=== PATIENT | female | born 1985 | race Caucasian/White ===

== ENCOUNTER → 2016-07-13 | Outpatient (CLI) | payer OTHER ==
[2016-07-13 11:10] LABS: ALT 259 U/L (9-52); AST 113 U/L (14-36); Alkaline Phosphatase 66 U/L (38-126); Anion Gap 12 mmol/L; Blood Urea Nitrogen 16 mg/dL (7-17); Calcium 10.2 mg/dL (8.4-10.2); Carbon Dioxide 22 mmol/L (22-30); Chloride 109 mmol/L (98-107); Glucose 86 mg/dL (74-99); Non-African American GFR(MDRD) >60 (>60 ml/min/1.73 sqM); Sodium 143 mmol/L (137-145); Total Bilirubin 0.7 mg/dL (0.2-1.3); Total Protein 8.2 g/dL (6.3-8.2)
[2016-07-13 11:54] LABS: Basophils # (A) 0.1 k/uL (0-0.2); Basophils % (A) 1 %; CH 30.6; Eosinophils # (A) 0.2 k/uL (0-0.7); Eosinophils % (A) 2 %; HCT 48.2 % (34.0-46.0); HDW 2.22; HGB 15.7 gm/dL (11.4-16.0); Luc % (Auto) 2; Lymphocytes # (A) 2.5 k/uL (1.0-4.8); Lymphocytes % (A) 26 %; MCH 31.3 pg (25.0-35.0); MCHC 32.6 g/dL (31.0-37.0); Monocytes # (A) 0.5 k/uL (0-1.0); Monocytes % (A) 5 %; Neutrophils # (A) 6.3 k/uL (1.3-7.7); Neutrophils % (A) 65 %; RBC 5.02 m/uL (3.80-5.40); RDW 14.1 % (11.5-15.5); WBC 9.8 k/uL (3.8-10.6); WBC (Perox) 10.37
== END | disposition home or self-care (01) ==
LOC: LABWHC1 09:24
PROVIDERS: ATTEND Family Medicine
DX: D64.9 Anemia, unspecified (principal); E87.8 Other disorders of electrolyte and fluid balance, not elsewhere classified
CPT/HCPCS: 36415; 80053; 85025

== ENCOUNTER 2016-11-10 01:44 | Emergency (ER) | payer OTHER ==
[2016-11-10 01:50] VITALS: BP 113/67; PULSE 74; RESP 16; TEMP 97.9
[2016-11-10] MEDS ORDERED: PROPARACAINE 0.5% OPHTH DROPS 15 ML BTL LEFT EYE STA (03:06)
--- NOTE | 2016-11-10 03:27 | ED ---
General Adult HPI - General Chief complaint: Skin/Abscess/Foreign Body Stated complaint: Eye irratation/rash Time Seen by Provider: 11/10/16 03:00 Source: patient, RN notes reviewed Mode of arrival: ambulatory Limitations: no limitations - History of Present Illness Initial comments: Patient is a 31-year-old female presents to the emergency room for evaluation. Patient states that about a week ago she woke up with her left eye red and draining. Patient states [facility] and she was placed on an eyedrop and an oral antibiotic, Keflex. Patient states she finished taking the Keflex and eyedrops about 2 days ago. Patient states her eye is improved but is still tiny bit swollen and red. Patient states she went [facility] today and was placed on an antibiotic eyedrop again. Patient does state that she gets these infected cysts under the skin of her face. Patient does state that she is prone to MRSA. Patient states she's having pain on the left side of her face with swelling. Patient does admit to picking at the lesion. Patient has no fevers or chills. Patient denies shortness of breath. Patient denies headache or dizziness. - Related Data Previous Rx's Medication Instructions Recorded Sulfamethox-Tmp 800-160Mg [Bactrim 2 each PO Q12HR #56 tab 11/10/16 Ds] Allergies Allergy/AdvReac Type Severity Reaction Status Date / Time codeine Allergy Rash/Hives Verified 11/10/16 01:50 Review of Systems ROS Statement: Those systems with pertinent positive or pertinent negative responses have been documented in the HPI. ROS Other: All systems not noted in ROS Statement are negative. Past Medical History Past Medical History: No Reported History History of Any Multi-Drug Resistant Organisms: None Reported Past Surgical History: No Surgical Hx Reported, Tonsillectomy Past Psychological History: No Psychological Hx Reported Smoking Status: Current every day smoker Past Alcohol Use History: Occasional Past Drug Use History: None Reported General Exam - General Exam Comments Initial Comments: sitting in exam room, no acute distress. Limitations: no limitations General appearance: alert, in no apparent distress Head exam: Present: atraumatic, normocephalic, normal inspection Expanded Eyelids: Normal Inspection: Bilateral Pupils: Regular, Round: Bilateral, Reactive: Bilateral Sclera/Conjunctival: Injection: Left, Exudate: Left Anterior chamber: Normal Inspection: Bilateral ENT exam: Present: normal exam Neck exam: Present: normal inspection Respiratory exam: Present: normal lung sounds bilaterally. Absent: respiratory distress Cardiovascular Exam: Present: regular rate, normal rhythm, normal heart sounds Extremities exam: Present: normal inspection Back exam: Present: normal inspection Neurological exam: Present: alert, oriented X3, CN II-XII intact Psychiatric exam: Present: normal affect, normal mood, anxious Skin exam: Present: warm, dry, other (cystic acne lesion on left cheek of the face with surrounding erythema.) Course Vital Signs 11/10/16 01:46 Temperature 97.9 F Pulse Rate 74 Respiratory 16 Rate Blood Pressure 113/67 O2 Sat by Pulse 99 Oximetry Medical Decision Making - Medical Decision Making Patient is a 31-year-old female since emergency room for evaluation of left eye redness and left facial lesion/swelling. left eye anesthetized with proparacaine and evaluated under wood's lamp with fluorescein dye. No uptake noted. Patient will be placed on Bactrim. Advised patient to continue taking eyedrops as directed. patient will be given ophthalmology follow-up with. Patient states she understands everything that was discussed with her. Return parameters discussed. Disposition Clinical Impression: Conjunctivitis, left eye, Cystic acne Disposition: HOME SELF-CARE Condition: Good Instructions: Acne (ED), Conjunctivitis (ED) Additional Instructions: Continue using eyedrops as directed. Take antibiotics as directed. Wash face with antibacterial soap and water daily. Apply warm compresses to face. Please follow up with environmental maintenance worker. Please follow up with primary care provider in 1-2 days. If any new symptom arises or symptoms worsen, return to ER as soon as possible. Prescriptions: Sulfamethox-Tmp 800-160Mg [Bactrim Ds] 2 each PO Q12HR #56 tab Referrals: Stephie Hammer MD [STAFF PHYSICIAN] - 1-2 days Time of Disposition: 03:33
== END 2016-11-10 04:09 | disposition home or self-care (01) ==
LOC: EC 01:44
DX: H10.9 Unspecified conjunctivitis (principal); L70.0 Acne vulgaris; R51 Headache; F17.200 Nicotine dependence, unspecified, uncomplicated; Z88.5 Allergy status to narcotic agent
CPT/HCPCS: 99283

== ENCOUNTER 2016-11-12 22:29 | Inpatient (IN) | payer OTHER ==
[2016-11-12] MEDS ORDERED: MOXIFLOXACIN HCL 0.5% DROPS 3 ML BTL LEFT EYE ONE (23:04)
[2016-11-13] LABS: CH 32.1; CHCM 34.5; HCT 36.7 % (34.0-46.0); HDW 2.59; HGB 12.4 gm/dL (11.4-16.0); MCH 31.6 pg (25.0-35.0); MCHC 33.8 g/dL (31.0-37.0); MCV 93.5 fL (80.0-100.0); Mean Platelet Volume 6.6; RBC 3.92 m/uL (3.80-5.40); RDW 13.4 % (11.5-15.5); WBC 5.2 k/uL (3.8-10.6); WBC (Perox) 5.15
[2016-11-13 00:12] LABS: Anion Gap 11 mmol/L; Blood Urea Nitrogen 17 mg/dL (7-17); Calcium 9.7 mg/dL (8.4-10.2); Carbon Dioxide 20 mmol/L (22-30); Chloride 108 mmol/L (98-107); Glucose 65 mg/dL (74-99); Non-African American GFR(MDRD) 58 (>60 ml/min/1.73 sqM); Potassium 4.1 mmol/L (3.5-5.1); Sodium 139 mmol/L (137-145)
[2016-11-13] MEDS ORDERED: IV VANCOMYCIN PER PHARMACY 1 EACH MISC MISCELLANE PRN (00:27)
[2016-11-13 00:28] LABS: Add Differential Manual Differential
[2016-11-13 00:30] LABS: Manual Review Performed; Nucleated Red Blood Cells 0 /100 WBC (0-0); Total Cells Counted 100
[2016-11-13] MEDS ORDERED: ACETAMINOPHEN TAB 325 MG TAB PO PRN (00:30)
[2016-11-13] MEDS ORDERED: IBUPROFEN 400 MG TAB PO PRN (00:30)
[2016-11-13] MEDS ORDERED: ONDANSETRON 4 MG/2 ML VIAL IVP PRN (00:30)
[2016-11-13] MEDS ORDERED: NALOXONE 0.4 MG/ML 1 ML VIAL IV PRN (00:30)
[2016-11-13] MEDS ORDERED: HYDROcodone/APAP 5-325MG 1 EACH TAB PO PRN (00:30)
--- NOTE | 2016-11-13 00:30 | ED ---
Skin/Abscess/FB HPI - General Chief complaint: Skin/Abscess/Foreign Body Stated complaint: Infection/face/eye Time Seen by Provider: 11/12/16 22:51 Source: patient, RN notes reviewed Mode of arrival: ambulatory Limitations: no limitations - History of Present Illness Initial comments: 31-year-old female presents emergency Department for left facial abscess, left eye conjunctivitis. Patient has been seen at [email or web address] twice in emergency department for this. Patient states that her eye is improving though still injected. Patient states that she has this large sore on her face and she has had MRSA and several times in the past. Patient states that [facility] cultured her eye and he did come back positive for MRSA. Patient's denies any fevers or chills but states that she has pain in her left cheek and she feels swelling on the inside of her cheek also. Patient denies any headache, dizziness, neck pain. Patient has been taken Bactrim is on her third day of medication and states symptoms are getting worse. - Related Data Previous Rx's Medication Instructions Recorded Sulfamethox-Tmp 800-160Mg [Bactrim 2 each PO Q12HR #56 tab 11/10/16 Ds] Allergies Allergy/AdvReac Type Severity Reaction Status Date / Time codeine Allergy Rash/Hives Verified 11/12/16 22:41 Review of Systems ROS Statement: Those systems with pertinent positive or pertinent negative responses have been documented in the HPI. ROS Other: All systems not noted in ROS Statement are negative. Past Medical History Past Medical History: No Reported History History of Any Multi-Drug Resistant Organisms: None Reported Past Surgical History: No Surgical Hx Reported, Tonsillectomy Past Psychological History: No Psychological Hx Reported Smoking Status: Current every day smoker Past Alcohol Use History: Occasional Past Drug Use History: None Reported General Exam Limitations: no limitations General appearance: alert, in no apparent distress Head exam: Present: atraumatic, normocephalic, normal inspection Eye exam: Present: PERRL, EOMI, conjunctival injection (Left). Absent: normal appearance, scleral icterus, periorbital swelling ENT exam: Present: normal oropharynx, mucous membranes moist, TM's normal bilaterally, normal external ear exam, other (Left cheek there is 2 cm sore surrounding edema and mild erythema is tender with palpation). Absent: normal exam Neck exam: Present: normal inspection, full ROM. Absent: tenderness, meningismus, lymphadenopathy Respiratory exam: Present: normal lung sounds bilaterally. Absent: respiratory distress, wheezes, rales, rhonchi, stridor Cardiovascular Exam: Present: regular rate, normal rhythm, normal heart sounds. Absent: systolic murmur, diastolic murmur, rubs, gallop, clicks Course Vital Signs 11/12/16 22:37 Temperature 98.4 F Pulse Rate 83 Respiratory 16 Rate Blood Pressure 99/55 O2 Sat by Pulse 98 Oximetry Medical Decision Making - Medical Decision Making 31-year-old female presents emergency Department for left eye redness and cheek abscess. Patient be placed on vancomycin admitted and given Vigamox eyedrops for left eye. Patient has failed outpatient treatment. - Lab Data Result diagrams: 11/12/16 23:47 11/12/16 23:47 Lab Results 11/12/16 11/12/16 Range/Units 23:47 23:47 WBC 5.2 (3.8-10.6) k/uL RBC 3.92 (3.80-5.40) m/uL Hgb 12.4 (11.4-16.0) gm/dL Hct 36.7 (34.0-46.0) % MCV 93.5 (80.0-100.0) fL MCH 31.6 (25.0-35.0) pg MCHC 33.8 (31.0-37.0) g/dL RDW 13.4 (11.5-15.5) % Plt Count 219 (150-450) k/uL Sodium 139 (137-145) mmol/L Potassium 4.1 (3.5-5.1) mmol/L Chloride 108 H (98-107) mmol/L Carbon Dioxide 20 L (22-30) mmol/L Anion Gap 11 mmol/L BUN 17 (7-17) mg/dL Creatinine 1.10 H (0.52-1.04) mg/dL Est GFR (MDRD) Af Amer >60 (>60 ml/min/1.73 sqM) Est GFR (MDRD) Non-Af 58 (>60 ml/min/1.73 sqM) Glucose 65 L (74-99) mg/dL Calcium 9.7 (8.4-10.2) mg/dL Disposition Clinical Impression: Conjunctivitis, left eye, Cellulitis, face, Failure of outpatient treatment Disposition: ADMITTED IP TO THIS HOSP Condition: Fair Referrals: None,Stated [Primary Care Provider] - 1-2 days
[2016-11-13] MEDS ORDERED: HYDROcodone/APAP 5-325MG 1 EACH TAB PO STA (00:31)
[2016-11-13] MEDS ORDERED: diphenhydrAMINE 50 MG/ML 1 ML VIAL IVP STA (00:31)
[2016-11-13] MEDS ORDERED: VANCOMYCIN 1,000 MG in SODIUM CHLORIDE 0.9% 250 ML IVPB STA (00:57)
[2016-11-13 01:23] VITALS: BMI 21.7
[2016-11-13] MEDS: VANCOMYCIN 1,000 MG in SODIUM CHLORIDE 0.9% 250 ML IVPB SCH ×2 (08:54→21:08)
[2016-11-13] MEDS ORDERED: diphenhydrAMINE 50 MG/ML 1 ML VIAL IVP PRN (15:57)
[2016-11-13] MEDS ORDERED: lamoTRIgine 100 MG TAB PO SCH (16:00)
[2016-11-13] MEDS: MOXIFLOXACIN HCL 0.5% DROPS 3 ML BTL LEFT EYE SCH ×2 (16:32→20:44)
[2016-11-13 16:48] VITALS: RESP 20
--- NOTE | 2016-11-13 18:58 | HP ---
DATE OF ADMISSION: 11/13/2016 CHIEF COMPLAINT: Swelling of the left eye and left cheek for the past 2 weeks. HISTORY OF PRESENT ILLNESS: Mrs. Blancas is a 31-year-old female with a past medical history Of ADHD, and hypertension coming into the hospital with a chief complaint of left eye conjunctivitis and left cheek swelling that has been going on for the past two weeks. The patient stated that two weeks back, she noticed redness and swelling of her left eye that initially has spread to the left side of the face and she also had a large sore on the left side of her face. The patient mentions having history of MRSA several times in the past. Patient states that she went to [facility] where they cultured the eye and was told that it came back positive for MRSA and so she came into to [facility] for further elevation. Patient denies having any fevers, chills, or rigors. Denies having any headaches, blurring of vision and has no complaints of neck pain, dizziness, loss of consciousness. Patient did take Bactrim for a couple of days and also Keflex for a few days. In spite of taking that these antibiotics, her symptoms did worsen. The patient has been started on IV vancomycin and was admitted to the hospital. REVIEW OF SYSTEMS: CONSTITUTIONAL: No fevers, chills, or rigors. RESPIRATORY: No cough. No difficulty breathing. CARDIOVASCULAR: No chest pain, no palpitations. GASTROINTESTINAL: No abdominal pain, nausea, vomiting, or diarrhea. : No dysuria or hematuria. HEMATOLOGICAL: No history of easy bruising or recurrent infections. Rheumatological: None. MUSCULOSKELETAL: None. ENDOCRINE: None. All 13 review of systems are done and negative except for the ones mentioned in the HPI. Past medical history significant for MRSA infection, ADHD and depression. Current home medications: 1. Adderall. 2. Lamictal. 3. Bactrim that she has been taking for the past 3 days. ALLERGIES: CODEINE. PAST SURGICAL HISTORY: None. FAMILY HISTORY: Denies having any history of hypertension or diabetes. SOCIAL HISTORY: Every day smoker, smokes 8 to 10 cigarettes per day and occasional alcohol intake. No history of intravenous drug abuse. On examination: PATIENT'S VITAL SIGNS: Temperature 98, heart rate 84, respiratory 16, blood pressure 87/53, saturating 99% on room air. GENERAL EXAMINATION: Patient appears to be no acute distress. Examination of head: Patient has sore with a scab formation on the left side of cheek with surrounding erythema, tenderness and warmth. Examination of the eyes: There is conjunctival injection of the left eye. No periorbital swelling. ENT: Oropharynx is normal. Mucous membranes normal. NECK: No JVD. No thyromegaly. No lymphadenopathy. CARDIOVASCULAR: S1, S2 heard. Bilateral breath sounds are positive. No wheeze or crackles. ABDOMEN: Soft, nontender, no organomegaly. Bowel sounds positive. EXTREMITIES: No edema. No cyanosis, no clubbing. Peripheral pulses are felt. LEGAL RECRUITER: Alert and awake, oriented x3. No focal deficits. Psychiatry: Appropriate mood and affect. Musculoskeletal: No joint swelling or deformity. SKIN: No rashes except the one on the face. Patient has big tattoo on the left side of the arm. Patient's labs: White count of 5.2, hemoglobin is 12.4, platelets of 219. Sodium 139, potassium 4.1, chloride 108, bicarb 20, BUN 17, creatinine 1.10. Calcium of 9.7. ASSESSMENT AND PLAN: 1. Left eye conjunctivitis. 2. Left side cellulitis of the left side of the face. Failed outpatient treatment. PLAN: The patient has been told that her cultures have been positive for MRSA so she has been started on IV vancomycin and she was also given moxifloxacin eye drops in the ED. We will continue with them. Patient also resumed on her home medications and further recommendations depending on the progress of the patient.
[2016-11-13 20:11] VITALS: PULSE 72; TEMP 98.7
[2016-11-13 20:33] VITALS: BP 108/64
[2016-11-14 06:58] LABS: Basophils % (A) 1 %; CH 31.8; CHCM 35.2; Eosinophils # (A) 0.2 k/uL (0-0.7); Eosinophils % (A) 4 %; HCT 36.4 % (34.0-46.0); HDW 2.82; HGB 12.8 gm/dL (11.4-16.0); Luc % (Auto) 2; Lymphocytes # (A) 2.3 k/uL (1.0-4.8); Lymphocytes % (A) 53 %; MCH 31.9 pg (25.0-35.0); MCHC 35.2 g/dL (31.0-37.0); MCV 90.7 fL (80.0-100.0); Mean Platelet Volume 6.9; Monocytes # (A) 0.2 k/uL (0-1.0); Monocytes % (A) 5 %; Neutrophils # (A) 1.5 k/uL (1.3-7.7); Neutrophils % (A) 35 %; RBC 4.02 m/uL (3.80-5.40); RDW 13.2 % (11.5-15.5); WBC 4.4 k/uL (3.8-10.6); WBC (Perox) 4.49
[2016-11-14 07:26] LABS: Anion Gap 8 mmol/L; Blood Urea Nitrogen 15 mg/dL (7-17); Calcium 8.8 mg/dL (8.4-10.2); Carbon Dioxide 19 mmol/L (22-30); Chloride 114 mmol/L (98-107); Glucose 87 mg/dL (74-99); Non-African American GFR(MDRD) >60 (>60 ml/min/1.73 sqM); Potassium 5.1 mmol/L (3.5-5.1); Sodium 141 mmol/L (137-145)
[2016-11-14 08:44] LABS: Manual Review Performed; RBC Morphology Normal
== END 2016-11-14 06:55 | disposition left against medical advice (07) | DRG 603 ==
LOC: EC 22:29 → 6PED 11-13 00:30
PROVIDERS: ADMIT Hospitalist; ATTEND Hospitalist
DX: L03.211 Cellulitis of face (principal); I10 Essential (primary) hypertension; L02.01 Cutaneous abscess of face; F17.210 Nicotine dependence, cigarettes, uncomplicated; F90.9 Attention-deficit hyperactivity disorder, unspecified type; H10.9 Unspecified conjunctivitis; Z86.14 Personal history of Methicillin resistant Staphylococcus aureus infection; Z88.5 Allergy status to narcotic agent
CPT/HCPCS: 36415; 80048; 85025; 87040; 96374; 99285

== ENCOUNTER 2017-01-20 19:44 | Emergency (ER) | payer OTHER ==
[2017-01-20 19:56] VITALS: BP 93/54; PULSE 84; RESP 20; TEMP 99.3
[2017-01-20] MEDS ORDERED: PROPARACAINE 0.5% OPHTH DROPS 15 ML BTL RIGHT EYE STA (20:16)
--- NOTE | 2017-01-20 20:24 | ED ---
General Adult HPI - General Chief complaint: ENT Stated complaint: eye infection Time Seen by Provider: 01/20/17 19:58 Source: patient, RN notes reviewed Mode of arrival: ambulatory Limitations: no limitations - History of Present Illness Initial comments: Patient is a 31-year-old female who presents emergency room today with chief complaint of increased redness irritation to the right eye. She does admit that she's had some watery drainage and discharge. She does admit that 2 months ago she was diagnosed with "MRSA" to the right eye. She states that she was admitted and placed on IV antibiotics. Patient states that she did leave AMA. She states that she continue with antibiotic drops at home and symptoms improved. She states that the symptoms will return once again over the last 2 days. She denies any other complaints or associated symptoms at this time. Patient denies any recent fever, chills, shortness of breath, chest pain, back pain, abdominal pain, nausea or vomiting, numbness or tingling, dysuria or hematuria, constipation or diarrhea, headaches, or any other complaints. - Related Data Home Medications Medication Instructions Recorded Confirmed Buprenorphine HCl/Naloxone HCl 1.5 film SUBLINGUAL Q12H 11/13/16 11/13/16 [Suboxone 8 mg-2 mg Sl Film] Dextroamphetamine/Amphetamine 20 mg PO TID 11/13/16 11/13/16 [Adderall] Sulfamethox-Tmp 800-160Mg [Bactrim 2 tab PO Q12HR 11/13/16 11/13/16 Ds] Tobramycin 0.3% Ophth Soln [Tobrex 1 drop BOTH EYES Q2H 11/13/16 11/13/16 0.3% Ophth Soln] lamoTRIgine [LaMICtal] 100 mg PO DAILY 11/13/16 11/13/16 Previous Rx's Medication Instructions Recorded Moxifloxacin [Vigamox 0.3%] 1 drop RIGHT EYE TID 10 Days 01/20/17 Allergies Allergy/AdvReac Type Severity Reaction Status Date / Time codeine Allergy Rash/Hives Verified 01/20/17 19:56 Review of Systems ROS Statement: Those systems with pertinent positive or pertinent negative responses have been documented in the HPI. ROS Other: All systems not noted in ROS Statement are negative. Past Medical History Past Medical History: No Reported History History of Any Multi-Drug Resistant Organisms: MRSA Date of last positivie culture/infection: 11/2016 MDRO Source:: left eye Past Surgical History: No Surgical Hx Reported, Tonsillectomy Past Anesthesia/Blood Transfusion Reactions: No Reported Reaction Past Psychological History: No Psychological Hx Reported Smoking Status: Current every day smoker Past Alcohol Use History: Occasional Past Drug Use History: None Reported - Past Family History Mother Family Medical History: No Reported History General Exam - General Exam Comments Initial Comments: General: The patient is awake and alert, in no distress, and does not appear acutely ill. Eye: Pupils are equal, round and reactive to light, extra-ocular movements are intact. No nystagmus. Increased redness to the right conjunctiva. Ears, nose, mouth and throat: There are moist mucous membranes and no oral lesions. Neck: The neck is supple, there is no tenderness or JVD. Cardiovascular: There is a regular rate and rhythm. No murmur, rub or gallop is appreciated. Respiratory: Lungs are clear to auscultation, respirations are non-labored, breath sounds are equal. No wheezes, stridor, rales, or rhonchi. Gastrointestinal: Soft, non-distended, non-tender abdomen without masses or organomegaly noted. There is no rebound or guarding present. No CVA tenderness. Bowel sounds are unremarkable. Musculoskeletal: Normal ROM, no tenderness. Strength 5/5. Sensation intact. Pulses equal bilaterally 2+. Neurological: A&O x 3. CN II-XII intact, There are no obvious motor or sensory deficits. Coordination appears grossly intact. Speech is normal. Skin: Skin is warm and dry and no rashes or lesions are noted. Psychiatric: Cooperative, appropriate mood & affect, normal judgment. Limitations: no limitations Course Vital Signs 01/20/17 19:54 Temperature 99.3 F Pulse Rate 84 Respiratory 20 Rate Blood Pressure 93/54 O2 Sat by Pulse 99 Oximetry Medical Decision Making - Medical Decision Making Case discussed in detail with attending physician Dr. Kessler. Patient reexamined at this time shows no signs of distress resting comfortably. Patient' s recent visit an admission on 11/13/2016 was reviewed. She did receive a dose of IV vancomycin. At the time patient did have an abscess to the right side of her cheek as well. At this time there is no sign of abscess. She does have evidence for conjunctivitis to the right eye. Patient did only stay in the hospital for 1 day in the left AMA. She continued on antibiotic drops of Vigamox at the time. Patient will be started on these drops today." With the family doctor and binder cutter hand. Advised return if any symptoms increase worsen or for any other concerns. Disposition Clinical Impression: Acute conjunctivitis of right eye Disposition: HOME SELF-CARE Condition: Good Instructions: Conjunctivitis (ED) Additional Instructions: Please follow-up family doctor and binder cutter hand over the next 2 days. Please continue antibiotic drops as discussed. Please return to emergency room for any other concerns. Prescriptions: Moxifloxacin [Vigamox 0.3%] 1 drop RIGHT EYE TID 10 Days Referrals: Abdullahi eLiva MD [Primary Care Provider] - 1-2 days Allan Mulligan MD [STAFF PHYSICIAN] - 1-2 days Time of Disposition: 20:22
== END 2017-01-20 20:30 | disposition home or self-care (01) ==
LOC: EC 19:44
DX: H10.31 Unspecified acute conjunctivitis, right eye (principal); L02.01 Cutaneous abscess of face; F17.200 Nicotine dependence, unspecified, uncomplicated; Z79.899 Other long term (current) drug therapy; Z88.5 Allergy status to narcotic agent
CPT/HCPCS: 99283

== ENCOUNTER 2017-02-09 19:19 | Emergency (ER) | payer OTHER ==
[2017-02-09 19:33] VITALS: BP 116/69; PULSE 103; RESP 18; TEMP 98.7
--- NOTE | 2017-02-09 20:20 | ED ---
General Adult HPI - General Chief complaint: Recheck/Abnormal Lab/Rx Stated complaint: facial abscess Time Seen by Provider: 02/09/17 20:07 Source: patient Mode of arrival: ambulatory Limitations: no limitations - History of Present Illness Initial comments: 31-year-old female patient presents to emergency department today for evaluation of possible infection to the right side of her face. Patient states that she does have a history of cystic acne, she states she developed a spot on the right side of her face about a week ago. She states that she had been squeezing it and trying to pop it however the area appears to be worsening and becoming infected. She denies any fever or chills. She denies any nausea, vomiting, headache, neck pain, dizziness, weakness, or difficulty with urination or bowel movements. States that she has had this in the past and has been diagnosed with MRSA and is usually treated with Bactrim. Patient states she did have some Bactrim tablets at home and did start taking them 2 days ago. She states that the site has not worsened over the last 2 days, but it has not gotten any better either. - Related Data Home Medications Medication Instructions Recorded Confirmed Buprenorphine HCl/Naloxone HCl 1.5 film SUBLINGUAL Q12H 11/13/16 11/13/16 [Suboxone 8 mg-2 mg Sl Film] Dextroamphetamine/Amphetamine 20 mg PO TID 11/13/16 11/13/16 [Adderall] Sulfamethox-Tmp 800-160Mg [Bactrim 2 tab PO Q12HR 11/13/16 11/13/16 Ds] Tobramycin 0.3% Ophth Soln [Tobrex 1 drop BOTH EYES Q2H 11/13/16 11/13/16 0.3% Ophth Soln] lamoTRIgine [LaMICtal] 100 mg PO DAILY 11/13/16 11/13/16 Previous Rx's Medication Instructions Recorded Moxifloxacin [Vigamox 0.3%] 1 drop RIGHT EYE TID 10 Days 01/20/17 Sulfamethox-Tmp 800-160Mg [Bactrim 1 tab PO Q12HR #20 tab 01/20/17 DS 800-160 mg] Cephalexin [Keflex] 500 mg PO QID #40 capsule 02/09/17 Sulfamethoxazole/Trimethoprim 1 each PO BID #20 tablet 02/09/17 [Bactrim DS 800-160 mg] Allergies Allergy/AdvReac Type Severity Reaction Status Date / Time codeine Allergy Rash/Hives Verified 02/09/17 19:28 Review of Systems ROS Statement: Those systems with pertinent positive or pertinent negative responses have been documented in the HPI. ROS Other: All systems not noted in ROS Statement are negative. Past Medical History Past Medical History: No Reported History Additional Past Medical History / Comment(s): hep b, OCD History of Any Multi-Drug Resistant Organisms: MRSA Date of last positivie culture/infection: 11/2016 MDRO Source:: left eye Past Surgical History: Tonsillectomy Past Anesthesia/Blood Transfusion Reactions: No Reported Reaction Past Psychological History: Bipolar Smoking Status: Current every day smoker Past Alcohol Use History: Occasional Past Drug Use History: None Reported - Past Family History Mother Family Medical History: No Reported History General Exam Limitations: no limitations General appearance: alert, in no apparent distress Head exam: Present: atraumatic, normocephalic, normal inspection, other ( Patient has a crusted, scabbed lesion to the right cheek near the right corner of the mouth. Patient states that the area started as a 6 thick lesion consistent with her usual acne, and has developed into this over the course of the last week. There is surrounding erythema, the area is dry and not draining. No area of drainable abscess palpated.) Eye exam: Present: normal appearance, PERRL, EOMI. Absent: scleral icterus, conjunctival injection, periorbital swelling ENT exam: Present: normal exam, normal oropharynx, mucous membranes moist Neck exam: Present: normal inspection, full ROM. Absent: tenderness, meningismus, lymphadenopathy Respiratory exam: Present: normal lung sounds bilaterally. Absent: respiratory distress, wheezes, rales, rhonchi, stridor Cardiovascular Exam: Present: regular rate, normal rhythm, normal heart sounds. Absent: systolic murmur, diastolic murmur, rubs, gallop, clicks Neurological exam: Present: alert, oriented X3, CN II-XII intact Psychiatric exam: Present: normal affect, normal mood Skin exam: Present: warm, dry, intact, normal color. Absent: rash Course Vital Signs 02/09/17 19:28 Temperature 98.7 F Pulse Rate 103 H Respiratory 18 Rate Blood Pressure 116/69 O2 Sat by Pulse 98 Oximetry Medical Decision Making - Medical Decision Making 31-year-old female patient presented for evaluation of a lesion to the right side of her face. Patient has a history of cystic acne and history of MRSA. Patient states she has had areas like this in the past and they treated her with Bactrim before. Physical exam did reveal a crusted, scabbed, dry lesion to the right cheek. Did exhibit surrounding erythema and some warmth however no area of drainable abscess was palpated. Patient will be continued on the Bactrim and given a prescription for Keflex as well. Patient will be instructed to follow-up with dermatology for further evaluation of the cystic acne. She is instructed to follow-up with her primary care physician for recheck in 1-2 days. She is instructed to return here immediately for any worsening, new, or concerning symptoms. Patient verbalizes understanding and agrees with this plan. Disposition Clinical Impression: Abscess of face, Cellulitis Disposition: HOME SELF-CARE Condition: Good Instructions: Cellulitis (ED), Abscess (ED) Additional Instructions: Warm compresses to the site. Complete antibiotic prescription in full. Follow- up with driver trainee for evaluation of cystic acne. Follow-up with primary care physician for recheck in 1-2 days. Return immediately for any new, worsening, or concerning symptoms. Prescriptions: Cephalexin [Keflex] 500 mg PO QID #40 capsule Sulfamethoxazole/Trimethoprim [Bactrim DS 800-160 mg] 1 each PO BID #20 tablet Referrals: Abdullahi Leiva MD [Primary Care Provider] - 1-2 days Liss Viatl MD [STAFF PHYSICIAN] - 1-2 days Time of Disposition: 20:20
== END 2017-02-09 20:25 | disposition home or self-care (01) ==
LOC: EC 19:19
DX: L02.01 Cutaneous abscess of face (principal); L03.211 Cellulitis of face; L70.0 Acne vulgaris; F31.9 Bipolar disorder, unspecified; F17.200 Nicotine dependence, unspecified, uncomplicated; Z86.14 Personal history of Methicillin resistant Staphylococcus aureus infection; Z79.899 Other long term (current) drug therapy; Z88.5 Allergy status to narcotic agent
CPT/HCPCS: 99283

== ENCOUNTER 2017-10-30 20:38 | Emergency (ER) | payer OTHER ==
[2017-10-30] MEDS ORDERED: ONDANSETRON ODT 4 MG TAB PO STA (21:08)
[2017-10-30 22:00] VITALS: BP 106/73; PULSE 78; RESP 14; TEMP 98.1
--- NOTE | 2017-10-30 22:09 | ED ---
General Adult HPI - General Chief complaint: Overdose Stated complaint: Overdose Time Seen by Provider: 10/30/17 20:44 Source: patient, RN notes reviewed Mode of arrival: EMS Limitations: no limitations - History of Present Illness Initial comments: 31-year-old female presents to the emergency department for a chief complaint of heroin overdose shortly before arrival. Patient was brought in by EMS. Patient states she took one pack of heroin. Patient was given Narcan by one of her friends. Patient was just released from rehab yesterday. Patient denies doing any other drugs. Patient denies any shortness of breath or chest pain. Patient denies any abdominal pain but does admit to slight nausea.Patient has no other complaints at this time including shortness of breath, chest pain, abdominal pain, nausea or vomiting, headache, or visual changes. - Related Data Home Medications Medication Instructions Recorded Confirmed Buprenorphine HCl/Naloxone HCl 1 film SUBLINGUAL TID 11/13/16 02/09/17 [Suboxone 8 mg-2 mg Sl Film] lamoTRIgine [LaMICtal] 100 mg PO DAILY 11/13/16 02/09/17 Dextroamphetamine/Amphetamine 30 mg PO TID 02/09/17 02/09/17 [Adderall] Previous Rx's Medication Instructions Recorded Cephalexin [Keflex] 500 mg PO QID #40 capsule 02/09/17 Sulfamethoxazole/Trimethoprim 1 each PO BID #20 tablet 02/09/17 [Bactrim DS 800-160 mg] Allergies Allergy/AdvReac Type Severity Reaction Status Date / Time codeine Allergy Rash/Hives Verified 10/30/17 20:48 Review of Systems ROS Statement: Those systems with pertinent positive or pertinent negative responses have been documented in the HPI. ROS Other: All systems not noted in ROS Statement are negative. Past Medical History Past Medical History: No Reported History Additional Past Medical History / Comment(s): hep b, OCD History of Any Multi-Drug Resistant Organisms: MRSA Date of last positivie culture/infection: 11/2016 MDRO Source:: left eye Past Surgical History: Tonsillectomy Past Anesthesia/Blood Transfusion Reactions: No Reported Reaction Past Psychological History: Bipolar Smoking Status: Current every day smoker Past Alcohol Use History: None Reported Past Drug Use History: Heroin - Past Family History Mother Family Medical History: No Reported History General Exam Limitations: no limitations General appearance: alert, in no apparent distress (Patient is sitting up in bed alert cooperative and interactive. In no distress. Patient is not lethargic.) Head exam: Present: atraumatic, normocephalic, normal inspection Eye exam: Present: normal appearance, PERRL, EOMI. Absent: scleral icterus, conjunctival injection, periorbital swelling ENT exam: Present: normal exam, normal oropharynx, mucous membranes moist, normal external ear exam Neck exam: Present: normal inspection, full ROM. Absent: tenderness, meningismus, lymphadenopathy Respiratory exam: Present: normal lung sounds bilaterally. Absent: respiratory distress, wheezes, rales, rhonchi, stridor Cardiovascular Exam: Present: regular rate, normal rhythm, normal heart sounds. Absent: systolic murmur, diastolic murmur, rubs, gallop, clicks GI/Abdominal exam: Present: soft, normal bowel sounds. Absent: distended, tenderness, guarding, rebound, rigid Extremities exam: Present: normal capillary refill (Refill less than 2 seconds in all extremities. Radial pulse 2+ bilaterally. Pedal pulse 2+ bilaterally.) Back exam: Present: normal inspection, full ROM. Absent: tenderness Neurological exam: Present: alert, oriented X3, CN II-XII intact, other (GCS 15) Psychiatric exam: Present: normal affect, normal mood Skin exam: Present: warm, dry, intact, normal color. Absent: rash Course Vital Signs 10/30/17 10/30/17 10/30/17 20:43 21:15 21:53 Temperature 98.2 F Pulse Rate 92 80 Pulse Rate [ 80 Pulse Oximetery ] Respiratory 18 18 Rate Blood Pressure 114/71 108/68 O2 Sat by Pulse 100 95 Oximetry 10/30/17 21:59 Temperature 98.1 F Pulse Rate 78 Pulse Rate [ Pulse Oximetery ] Respiratory 14 Rate Blood Pressure 106/73 O2 Sat by Pulse 100 Oximetry Medical Decision Making - Medical Decision Making 31-year-old female presents to the emergency department for a chief complaint of heroin overdose shortly before arrival. Patient was given Narcan by her friend. EMS brought her in. Patient complains of nausea and was given Zofran which helped. Patient denies any shortness of breath chest pain abdominal pain or any other complaints. Vitals are stable at this time. Patient is alert and interactive. She is not lethargic. She is cooperative. Physical Exam is unremarkable. Lungs are clear and patient has a normal heart rate. Pulses are strong in all extremities. Patient was monitored for an hour and a half and remained stable. She will be discharged home with her friend. I told patient she was going to be discharged but to wait for her paperwork but she decided to leave without it. She will return to the emergency Department if she has any worsening symptoms and her friend that she left with will monitor her. Otherwise she will follow-up with primary care. Disposition Clinical Impression: Heroin overdose Disposition: HOME SELF-CARE Condition: Good Instructions: Narcotic Abuse (ED), Opioid Overdose (ED) Additional Instructions: Please return to the emergency department if you have any worsening symptoms. Please monitor yourself throughout the night. Follow-up with primary care in 1- 2 days. Is patient prescribed a controlled substance at d/c from ED?: No Referrals: Abdullahi Leiva MD [STAFF PHYSICIAN] - 1-2 days Time of Disposition: 22:09
== END 2017-10-30 22:21 | disposition home or self-care (01) ==
LOC: EC 20:38
DX: T40.1X1A Poisoning by heroin, accidental (unintentional), initial encounter (principal); F31.9 Bipolar disorder, unspecified; F17.200 Nicotine dependence, unspecified, uncomplicated; Z86.14 Personal history of Methicillin resistant Staphylococcus aureus infection; Z88.5 Allergy status to narcotic agent; Z79.891 Long term (current) use of opiate analgesic; Z79.899 Other long term (current) drug therapy
CPT/HCPCS: 99284

== ENCOUNTER 2017-11-17 01:54 | Emergency (ER) | payer OTHER ==
[2017-11-17 02:03] VITALS: RESP 16; TEMP 98.4
[2017-11-17] MEDS ORDERED: cefTRIAXone 1,000 MG VIAL (IM USE) IM STA (02:16)
[2017-11-17] MEDS ORDERED: CIPROFLOXACIN 0.3% OPHTH SOLN 5 ML BTL RIGHT EYE STA (02:20)
--- NOTE | 2017-11-17 02:23 | ED ---
Eye Problem HPI - General Chief complaint: Eye Problems Stated complaint: Eye infection Time Seen by Provider: 11/17/17 02:07 Source: patient, RN notes reviewed, old records reviewed Mode of arrival: ambulatory Limitations: no limitations - History of Present Illness Initial comments: This patient is a 32-year-old female chief complaint of right eye pain and swelling and drainage for a few days. Patient states that earlier in the week sister to have some irritation over the eye. She is leftover antibiotic eyedrops that she's had for previous infections. She states that she is out of the eyedrops in the infection is worsening. She has no pain with Regular eye movements. Does her part blurry vision due to the swelling and drainage from her eye. The drainage is purulent. She does have a history of these eye infections and reports she has had to be admitted in the past. - Related Data Home Medications Medication Instructions Recorded Confirmed Buprenorphine HCl/Naloxone HCl 1 film SUBLINGUAL TID 11/13/16 02/09/17 [Suboxone 8 mg-2 mg Sl Film] lamoTRIgine [LaMICtal] 100 mg PO DAILY 11/13/16 02/09/17 Dextroamphetamine/Amphetamine 30 mg PO TID 02/09/17 02/09/17 [Adderall] Previous Rx's Medication Instructions Recorded Cephalexin [Keflex] 500 mg PO QID #40 capsule 02/09/17 Sulfamethoxazole/Trimethoprim 1 each PO BID #20 tablet 02/09/17 [Bactrim DS 800-160 mg] Cephalexin [Keflex] 500 mg PO Q6HR #40 cap 11/17/17 Ciprofloxacin Ophth Soln [Cipro 1 drops LEFT EYE Q4HR #1 bottle 11/17/17 Ophth Soln] Allergies Allergy/AdvReac Type Severity Reaction Status Date / Time codeine Allergy Rash/Hives Verified 11/17/17 02:03 Review of Systems ROS Statement: Those systems with pertinent positive or pertinent negative responses have been documented in the HPI. ROS Other: All systems not noted in ROS Statement are negative. Past Medical History Past Medical History: No Reported History Additional Past Medical History / Comment(s): hep b, OCD History of Any Multi-Drug Resistant Organisms: MRSA Date of last positivie culture/infection: 11/2016 MDRO Source:: left eye Past Surgical History: Tonsillectomy Past Anesthesia/Blood Transfusion Reactions: No Reported Reaction Past Psychological History: Bipolar Smoking Status: Current every day smoker Past Alcohol Use History: None Reported Past Drug Use History: Heroin - Past Family History Mother Family Medical History: No Reported History General Exam - General Exam Comments Initial Comments: This is a 32 year old female, no distress. Limitations: no limitations General appearance: alert, in no apparent distress Head exam: Present: atraumatic, normocephalic, normal inspection Eye exam: Present: PERRL, EOMI, conjunctival injection, periorbital swelling ( right upper eyelid. Purulent drainage.), periorbital tenderness. Absent: normal appearance, scleral icterus ENT exam: Present: normal exam, mucous membranes moist Neck exam: Present: normal inspection. Absent: tenderness, meningismus, lymphadenopathy Respiratory exam: Present: normal lung sounds bilaterally. Absent: respiratory distress, wheezes, rales, rhonchi, stridor Cardiovascular Exam: Present: regular rate, normal rhythm, normal heart sounds. Absent: systolic murmur, diastolic murmur, rubs, gallop, clicks Back exam: Present: normal inspection Neurological exam: Present: alert, oriented X3, CN II-XII intact Psychiatric exam: Present: normal affect, normal mood Course Vital Signs 11/17/17 11/17/17 02:00 02:57 Temperature 98.4 F Pulse Rate 86 79 Respiratory 16 16 Rate Blood Pressure 108/58 118/58 O2 Sat by Pulse 100 98 Oximetry Medical Decision Making - Medical Decision Making Patient is a 32 year old female with right eye conjunctivitis and preseptal cellulitis. No pain with EOM, no proptosis. Patient eyelid is very swollen, so she does report decreased vision. She has had no antibiotics at this time. Patient was given IM rocephin, and started on cipro drops. Culture obtained of the eye drainage. Discussed opthalmology follow and to return if the swelling and redness worsens. Patient agrees to treatment plan and will comply. Disposition Clinical Impression: Preseptal cellulitis of right eye, Bacterial conjunctivitis Disposition: HOME SELF-CARE Condition: Good Instructions: Conjunctivitis (ED) Additional Instructions: Patient advised to follow-up with primary care provider and [employer]. Patient should return to the emergency department if any alarming symptoms occur. Make sure he take the antibiotics as prescribed. Prescriptions: Cephalexin [Keflex] 500 mg PO Q6HR #40 cap Ciprofloxacin Ophth Soln [Cipro Ophth Soln] 1 drops LEFT EYE Q4HR #1 bottle Is patient prescribed a controlled substance at d/c from ED?: No When asked, does pt state using other controlled substances?: No If prescribed controlled substance>3 days was MAPS reviewed?: No If opioid is for acute pain is fill amount 7 days or less?: No If Rx opioid, was Start Talking consent form obtained?: No Referrals: Juan Brannon MD [Primary Care Provider] - 1-2 days Manas Marcos MD [STAFF PHYSICIAN] - 1-2 days Time of Disposition: 02:21
[2017-11-17 02:59] VITALS: BP 118/58; PULSE 79
== END 2017-11-17 02:47 | disposition home or self-care (01) ==
LOC: EC 01:54
DX: L03.213 Periorbital cellulitis (principal); H10.89 Other conjunctivitis; F31.9 Bipolar disorder, unspecified; F17.200 Nicotine dependence, unspecified, uncomplicated; Z86.14 Personal history of Methicillin resistant Staphylococcus aureus infection; Z79.899 Other long term (current) drug therapy; Z88.5 Allergy status to narcotic agent
CPT/HCPCS: 87070; 87205; 87077; 87186; 99284; 96372; J0696

== ENCOUNTER 2018-01-01 13:57 | Emergency (ER) | payer OTHER ==
[2018-01-01 15:00] VITALS: RESP 18; TEMP 98.5
[2018-01-01] MEDS ORDERED: SODIUM CHLORIDE 0.9% 1,000 ML IV STA (16:18)
[2018-01-01] MEDS ORDERED: HYDROmorphone 0.5 MG/0.5 ML SYRINGE IVP STA (16:26)
[2018-01-01] MEDS ORDERED: cefTRIAXone IN SWFI 2,000 MG/20 ML SYRINGE IVP STA (16:28)
--- NOTE | 2018-01-01 16:28 | ED ---
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 Pt states that 3 weeks ago she was seen at the emergency department for conjunctivits, eye cx were obtained at this time. Pt was started on topical abx and opthamology f/u. Pt did not f/u however she received a call a few days later stating the cx were positive for MRSA infection and topical antibiotics were called into the pharmacy at that time. Pt states that she tried this medication for a week however it was not working so she went to her PCP her started her on a new topical eye medication for which she didnt know the name or have the bottle with her and bactrim PO. She states that this did not help. Pt symptoms continued, she did have less purulent drainage however she admitted to watering eye, photophobia and eye pain. Over the past 7 days pt states that her vision has been getting blurrier in her right eye and 2 days ago she said it was so blurry that she couldnt see through the blurriness. She didnt seek medical attention however she continued to use drops from PCP hoping they would work. Pt stated that in addition to changes in vision for the last two days she had a deep pain in the back of the eye and headache. Pt denies surrounding fever, nuchal rigidity, speech or gait changes, muscles weakness, edema or erythema of the eye, flashes of light, floaters, halos, complete vision loss, FB, recent welding, recent eye surgery, nausea, vomiting. Pt admitted to chills, conjunctival injection, pain with EOM, photophobia, headache, watery right eye, and severer right eye pain upon presentation to ER. VS stable pt afebrile. Patient denies any recent shortness of breath, chest pain, back pain, abdominal pain, numbness or tingling, dysuria or hematuria, constipation or diarrhea, or any other complaints. - Related Data Home Medications Medication Instructions Recorded Confirmed Buprenorphine HCl/Naloxone HCl 1 film SUBLINGUAL TID 11/13/16 02/09/17 [Suboxone 8 mg-2 mg Sl Film] lamoTRIgine [LaMICtal] 100 mg PO DAILY 11/13/16 02/09/17 Dextroamphetamine/Amphetamine 30 mg PO TID 02/09/17 02/09/17 [Adderall] Previous Rx's Medication Instructions Recorded Cephalexin [Keflex] 500 mg PO QID #40 capsule 02/09/17 Sulfamethoxazole/Trimethoprim 1 each PO BID #20 tablet 02/09/17 [Bactrim DS 800-160 mg] Cephalexin [Keflex] 500 mg PO Q6HR #40 cap 11/17/17 Ciprofloxacin Ophth Soln [Cipro 1 drops LEFT EYE Q4HR #1 bottle 11/17/17 Ophth Soln] HYDROcodone/APAP 5-325MG [[place] 5] 1 each PO Q6HR PRN 1 Days #4 tab 01/01/18 Moxifloxacin [Vigamox 0.3%] 1 drop RIGHT EYE Q2H 7 Days #1 01/01/18 bottle Allergies Allergy/AdvReac Type Severity Reaction Status Date / Time codeine Allergy Rash/Hives Verified 01/01/18 14:59 Review of Systems ROS Statement: Those systems with pertinent positive or pertinent negative responses have been documented in the HPI. ROS Other: All systems not noted in ROS Statement are negative. Constitutional: Reports: chills. Denies: fever Eyes: Reports: as per HPI, eye pain, eye discharge, vision change ENT: Denies: ear pain, hearing loss Respiratory: Denies: cough, dyspnea, stridor Cardiovascular: Denies: chest pain, palpitations Endocrine: Denies: fatigue Gastrointestinal: Denies: abdominal pain, nausea, vomiting, diarrhea, constipation Genitourinary: Denies: urgency, dysuria, frequency, hematuria Musculoskeletal: Denies: back pain, joint swelling, arthralgia Skin: Denies: rash, lesions, change in color Neurological: Reports: headache. Denies: weakness, numbness, paresthesias, confusion, abnormal gait, vertigo Past Medical History Past Medical History: No Reported History Additional Past Medical History / Comment(s): hep b, OCD History of Any Multi-Drug Resistant Organisms: MRSA Date of last positivie culture/infection: 11/17/17 MDRO Source:: EYE Past Surgical History: Tonsillectomy Past Anesthesia/Blood Transfusion Reactions: No Reported Reaction Past Psychological History: Bipolar Smoking Status: Current every day smoker Past Alcohol Use History: None Reported Past Drug Use History: Heroin - Past Family History Mother Family Medical History: No Reported History General Exam - General Exam Comments Initial Comments: General: The patient is awake and alert, in no distress, and does not appear acutely ill. Eye: No erythema or edema of the surrounding soft tissue or eye lids of the eyes b/. No evidence of crusting of the eyes b/l. There is clear, watering of the right eye. Pupils are +3 equal, round and reactive to light, extra-ocular movements are intact with pain with EOM. No APD. There is both direct and consensual photophobia. There is opacity of cornea at the 6'oclock position. No cell and flar or hyphema. There is +2 conjunctival injection that does not spare the limbus. No nystagmus or conjugate gaze. No signs of icterus. VF of the left eye intact to confrontation, and VF of the right not able to be obtained due to pt unable to open eye secondary to photophobia. VA of the right eye no obtained pt is not able to keep open long enough for exam secondary to pain- pt states that she could see the top of my head only and the rest was blurry. Pt could not keep eyes open long enough for full slit lamp or fluoercein examination. Ears, nose, mouth and throat: There are moist mucous membranes and no oral lesions. Neck: The neck is supple, there is no tenderness or JVD. Cardiovascular: There is a regular rate and rhythm. No murmur, rub or gallop is appreciated. Respiratory: Lungs are clear to auscultation, respirations are non-labored, breath sounds are equal. No wheezes, stridor, rales, or rhonchi. Musculoskeletal: Normal ROM, no tenderness. Strength 5/5. Sensation intact. Pulses equal bilaterally 2+. Neurological: A&O x 3. CN II-XII intact, There are no obvious motor or sensory deficits. Coordination appears grossly intact. Speech is normal. Skin: Skin is warm and dry and no rashes or lesions are noted. Psychiatric: Cooperative, appropriate mood & affect, normal judgment. Limitations: no limitations Course Vital Signs 01/01/18 01/01/1801/01/18 14:57 19:00 21:16 Temperature 98.5 F Pulse Rate 103 H 78 93 Respiratory 18 18 18 Rate Blood Pressure 114/78 113/72 122/75 O2 Sat by Pulse 100 100 100 Oximetry Medical Decision Making - Medical Decision Making 32yo female with MRSA + eye culture aftre conjunctivitis dx 3 weeks ago with CC of right eye pain, watering, photophobia, pain with EOM, injection, and vision loss concerning for orbital cellulitis or abscess, corneal ulcer, uveitis, keratoconjunctivits. Physical examination revealed opacity of the cornea at the 6'oclock position that which appeared to be a corneal ulcer, examination was limited secondary to photophobia/eye pain. Pt could not tolerate slit lamp/ fluroscein exam. Pt received some relief with proparacaine administration to the right eye however it did not completely take away symptoms. Unable to obtain IOPs due to pt blinking after numerous attempts. CBC, CMP, CRP, lactic acid, blood cultures, CT of the orbits and brain w/wo contast obtained. Dr. Coffey evaluated pt himself and ophthamologist Dr. Mulligan was consulted and spoke with Dr. Coffey. Dr. Mulligan refused to come see the patient stating he would see her at 8am the next morning, and started her on moxifloxacin drops, he stated the oral abx were not necessary at this time. Pt received 0.5mg of dilaudid for pain which she stated helped minimally. Laboratory results and CT returned WNL. With normal VS and lab values there was low suspicion for systemic infection, brain or orbital abscess. Pt was given RX for 4 tabs of norco for pain mgmt and instructed to f/u with Dr. Mulligan at 8am tomorrow morning for further evaluation and treatment. I wanted an immediate in person consult for further evaluation with ophthamology however Dr. Mulligan was comfortable with seeing the patient in office the next day. At this time the exact diagnosis is not clear, however from physical exam findings Dr. Coffey states he feels this is a corneal ulcer at this time and that the patient is stable for discharge. Pt agreed with plan and I stressed the importance of application of moxifloxacin tonight q2h, we talked about setting alarms to wake her up for administration of medication, in addition I stressed important of f/u tmrw with Dr. Mulligan pt agreed with plan and was d/c in stable condition. - Lab Data Result diagrams: 01/01/18 16:50 01/01/18 19:57 Lab Results 01/01/18 01/01/18 01/01/18 Range/Units 16:50 17:23 17:23 WBC 8.6 (3.8-10.6) k/uL RBC 4.33 (3.80-5.40) m/uL Hgb 12.5 (11.4-16.0) gm/dL Hct 39.0 (34.0-46.0) % MCV 90.0 (80.0-100.0) fL MCH 28.9 (25.0-35.0) pg MCHC 32.1 (31.0-37.0) g/dL RDW 13.8 (11.5-15.5) % Plt Count 277 (150-450) k/uL Neutrophils % 68 % Lymphocytes % 24 % Monocytes % 4 % Eosinophils % 1 % Basophils % 0 % Neutrophils # 5.9 (1.3-7.7) k/uL Lymphocytes # 2.0 (1.0-4.8) k/uL Monocytes # 0.4 (0-1.0) k/uL Eosinophils # 0.1 (0-0.7) k/uL Basophils # 0.0 (0-0.2) k/uL Sodium (137-145) mmol/L Potassium (3.5-5.1) mmol/L Chloride (98-107) mmol/L Carbon Dioxide (22-30) mmol/L Anion Gap mmol/L BUN (7-17) mg/dL Creatinine (0.52-1.04) mg/dL Est GFR (CKD-EPI)AfAm (>60 ml/min/1.73 sqM) Est GFR (CKD-EPI)NonAf (>60 ml/min/1.73 sqM) Glucose (74-99) mg/dL Plasma Lactic Acid Samuel 1.1 (0.7-2.0) mmol/L Calcium (8.4-10.2) mg/dL Total Bilirubin (0.2-1.3) mg/dL AST (14-36) U/L ALT (9-52) U/L Alkaline Phosphatase (38-126) U/L C-Reactive Protein <5.0 (<10.0) mg/L Total Protein (6.3-8.2) g/dL Albumin (3.5-5.0) g/dL 01/01/18 Range/Units 19:57 WBC (3.8-10.6) k/uL RBC (3.80-5.40) m/uL Hgb (11.4-16.0) gm/dL Hct (34.0-46.0) % MCV (80.0-100.0) fL MCH (25.0-35.0) pg MCHC (31.0-37.0) g/dL RDW (11.5-15.5) % Plt Count (150-450) k/uL Neutrophils % % Lymphocytes % % Monocytes % % Eosinophils % % Basophils % % Neutrophils # (1.3-7.7) k/uL Lymphocytes # (1.0-4.8) k/uL Monocytes # (0-1.0) k/uL Eosinophils # (0-0.7) k/uL Basophils # (0-0.2) k/uL Sodium 139 (137-145) mmol/L Potassium 4.6 (3.5-5.1) mmol/L Chloride 108 H (98-107) mmol/L Carbon Dioxide 22 (22-30) mmol/L Anion Gap 9 mmol/L BUN 14 (7-17) mg/dL Creatinine 0.68 (0.52-1.04) mg/dL Est GFR (CKD-EPI)AfAm >90 (>60 ml/min/1.73 sqM) Est GFR (CKD-EPI)NonAf >90 (>60 ml/min/1.73 sqM) Glucose 115 H (74-99) mg/dL Plasma Lactic Acid Samuel (0.7-2.0) mmol/L Calcium 9.0 (8.4-10.2) mg/dL Total Bilirubin 0.3 (0.2-1.3) mg/dL AST 21 (14-36) U/L ALT 21 (9-52) U/L Alkaline Phosphatase 64 (38-126) U/L C-Reactive Protein (<10.0) mg/L Total Protein 6.6 (6.3-8.2) g/dL Albumin 3.7 (3.5-5.0) g/dL Disposition Clinical Impression: Corneal ulcer of right eye Disposition: HOME SELF-CARE Condition: Fair Instructions: Corneal Ulcer (ED) Additional Instructions: Please use medication as discussed. Please follow-up first thing in the morning with Dr. Mulligan at 8AM as discussed. Please return to emergency room if the symptoms increase or worsen or for any other concerns. Prescriptions: HYDROcodone/APAP 5-325MG [[place] 5] 1 each PO Q6HR PRN 1 Days #4 tab PRN Reason: Pain Moxifloxacin [Vigamox 0.3%] 1 drop RIGHT EYE Q2H 7 Days #1 bottle Is patient prescribed a controlled substance at d/c from ED?: Yes When asked, does pt state using other controlled substances?: No If prescribed controlled substance>3 days was MAPS reviewed?: Prescribed <3 Days If opioid is for acute pain is fill amount 7 days or less?: Yes If Rx opioid, was Start Talking consent form obtained?: Yes Referrals: Raj Garcia MD [Primary Care Provider] - 1-2 days Allan Mulligan MD [STAFF PHYSICIAN] - 1-2 days Time of Disposition: 20:41
[2018-01-01 17:01] LABS: Basophils % (A) 0 %; Eosinophils # (A) 0.1 k/uL (0-0.7); Eosinophils % (A) 1 %; HGB 12.5 gm/dL (11.4-16.0); Lymphocytes % (A) 24 %; MCH 28.9 pg (25.0-35.0); MCHC 32.1 g/dL (31.0-37.0); Mean Platelet Volume 6.8; Monocytes # (A) 0.4 k/uL (0-1.0); Monocytes % (A) 4 %; Neutrophils # (A) 5.9 k/uL (1.3-7.7); Neutrophils % (A) 68 %; Platelet Count 277 k/uL (150-450); RBC 4.33 m/uL (3.80-5.40); RDW 13.8 % (11.5-15.5); WBC 8.6 k/uL (3.8-10.6)
[2018-01-01] MEDS ORDERED: MOXIFLOXACIN HCL 0.5% DROPS 3 ML BTL RIGHT EYE ONE (17:15)
--- NOTE | 2018-01-01 20:16 | CT ---
EXAMINATION TYPE: CT orbits w con DATE OF EXAM: 01/01/2018 COMPARISON: HISTORY: MRSA to right eye and pain. CT DLP: 314.14 mGycm Automated exposure control for dose reduction was used. CONTRAST: Performed with IV Contrast, patient injected with 100 mL of Isovue M300. FINDINGS: There is mild soft tissue swelling over the right orbit, entirely preseptal in location. No soft tissue emphysema. No fluid collection. The globes and orbits are symmetric and normal in morphology and contrast enhancement. There is no po stseptal abnormalities. The paranasal sinuses are clear, as are the middle ear cavities and the mastoid sinus air cells. The facial skeleton has normal appearance as seen. The visualized extracranial soft tissues are unremarkable for incidental findings. IMPRESSION: MILD PRESEPTAL SOFT TISSUE SWELLING OVER THE RIGHT ORBIT.
--- NOTE | 2018-01-01 20:24 | CT ---
EXAMINATION: CT brain wo/w con DATE AND TIME: 01/01/2018 8:06 PM ORDERING PROVIDER: Kelly Leal CLINICAL INDICATION: Pain TECHNIQUE: Standard departmental protocol. COMPARISON: None. DESCRIPTION: The calvarium is intact. There is no intracranial hemorrhage. There is no mass or mass e ffect. There is no definite new attenuation defect. Remainder of the intra-axial and extra-axial comp artment examination is unremarkable. The contrast enhancement pattern is unremarkable. The paranasal sinuses, middle ear cavities, and mastoid sinus air cells are clear. There is mild soft tissue swelling over the right orbit, entirely preseptal. The orbits are otherwise unremarkable. IMPRESSION: 1. NO ACUTE /INTRACRANIAL PROCESS. 2. MILD PRESEPTAL SOFT TISSUE SWELLING OVER THE RIGHT ORBIT.
[2018-01-01 20:27] LABS: ALT 21 U/L (9-52); AST 21 U/L (14-36); Albumin 3.7 g/dL (3.5-5.0); Alkaline Phosphatase 64 U/L (38-126); Anion Gap 9 mmol/L; Blood Urea Nitrogen 14 mg/dL (7-17); Carbon Dioxide 22 mmol/L (22-30); Chloride 108 mmol/L (98-107); Glucose 115 mg/dL (74-99); Potassium 4.6 mmol/L (3.5-5.1); Sodium 139 mmol/L (137-145); Total Bilirubin 0.3 mg/dL (0.2-1.3); Total Protein 6.6 g/dL (6.3-8.2)
[2018-01-01 21:17] VITALS: BP 122/75; PULSE 93
== END 2018-01-01 21:16 | disposition home or self-care (01) ==
LOC: EC 13:57
DX: H16.001 Unspecified corneal ulcer, right eye (principal); F31.9 Bipolar disorder, unspecified; F42.9 Obsessive-compulsive disorder, unspecified; F17.200 Nicotine dependence, unspecified, uncomplicated; Z86.14 Personal history of Methicillin resistant Staphylococcus aureus infection; Z79.899 Other long term (current) drug therapy; Z88.5 Allergy status to narcotic agent
CPT/HCPCS: 99284 ×2; 96374 ×2; 96375 ×2; 96361 ×2; 36415; 80053; 83605; 85025; 86140; 87040; 70470; 70481; J0696; J1170; Q9967